=== PATIENT | male | born 1960 ===

== ENCOUNTER 2018-10-23 11:56 | Outpatient (CLI) | payer OTHER | END 2018-10-23 11:57 | disposition home or self-care (01) | LOC: C.PAT 11:56 | DX: Z01.818 Encounter for other preprocedural examination (principal); J38.1 Polyp of vocal cord and larynx ==

== ENCOUNTER 2018-11-07 09:39 | Day surgery (SDC) | payer OTHER ==
[2014-09-06 10:55] VITALS: BMI 25.8
[~2018-11-07 09:39] MED LIST: Acetaminophen/Codeine elixir 120-12mg/5ml PO PRN; Dextrose 5%/0.45% NS 1,000 ML IV SCH
[2018-11-07] MEDS ORDERED: Midazolam 2 MG/2 ML VIAL ONE (12:45)
[2018-11-07] MEDS ORDERED: Propofol 10 mg/ml Inj (20 ML) ONE (12:45)
[2018-11-07] MEDS ORDERED: Succinylcholine Chloride 20 mg/ml Syr (5 ml) IV ONE ×2 (12:48→13:24)
[2018-11-07] MEDS ORDERED: ceFAZolin 1 gm in NS 1 GM/100 ML BAG IVPB ONE (12:53)
[2018-11-07] MEDS ORDERED: Atropine 0.4 mg/ml Inj (1 mL) ONE (13:26)
[2018-11-07] MEDS ORDERED: HYDROmorphone 0.5 mg/0.5 ml ISec IVP PRN (13:55)
[2018-11-07] MEDS ORDERED: Lactated Ringer's 1,000 ML IV SCH (14:00)
[2018-11-07 15:28] VITALS: RESP 18; TEMP 97.5
[2018-11-07 15:37] VITALS: BP 148/99; PULSE 72; O2SAT 100
--- NOTE | 2018-11-07 23:39 | OP ---
PROCEDURE DATE: 11/07/2018 PREOPERATIVE DIAGNOSIS: Vocal cord polyp. POSTOPERATIVE DIAGNOSIS: Vocal cord polyp. PROCEDURE: Micro direct laryngoscopy with removal of vocal cord polyp. FINDINGS: Right vocal cord polyp. DESCRIPTION OF PROCEDURE: The patient was brought into the room, placed in a supine position. Anesthesia was initiated through an ET tube. Shoulder roll was placed, neck extended. The patient was draped in the usual manner. Tooth guard was placed over the upper teeth in order to protect them. Direct laryngoscope was inserted to the oral cavity, passed oropharynx and hypopharynx. The base of tongue, vallecula, epiglottis, AE folds, false cords, true cords, pharyngeal wall, arytenoids, piriform sinuses were brought into view. Vocal cord polyp was noted emanating from the right anterior-inferior aspect of the vocal cord. The direct laryngoscope was suspended on the Taylor interpreter deaf the usual manner while viewing the polyp. Microscope was brought into position to view the polyp. The polyp was grasped and dissected off the vocal cord preserving as much mucosa as possible. Bleeding was controlled using cold water irrigation. The direct laryngoscope was taken off suspension and removed. The microscope was taken off position. The patient was taken off anesthesia and taken to recovery room in stable manner. Ignacio Cochran MD
== END 2018-11-07 15:35 | disposition home or self-care (01) ==
LOC: C.SDS 09:39
PROVIDERS: ATTEND Otolaryngology
DX: J38.1 Polyp of vocal cord and larynx (principal)
CPT/HCPCS: 31571; 88305; J0461; J0690; J1100; J2250; J2405; J2704; J3010